=== PATIENT | male | born 1955 | race Caucasian/White ===

== ENCOUNTER → 2016-10-31 | Outpatient (CLI) | payer OTHER, BC ==
[2011-01-25 23:16] VITALS: BP 124/54
== END ==
LOC: MMPC 11:11
PROVIDERS: ATTEND Internal Medicine
DX: A41.1 Sepsis due to other specified staphylococcus (principal); I10 Essential (primary) hypertension; I26.99 Other pulmonary embolism without acute cor pulmonale; G35 Multiple sclerosis
CPT/HCPCS: 99214; G0463

== ENCOUNTER → 2016-11-07 | Outpatient (CLI) | payer OTHER, BC ==
[2011-01-25 23:16] VITALS: BP 124/54
== END ==
LOC: LAB 08:32
PROVIDERS: ATTEND Internal Medicine Infectious Disease
DX: T80.21 Infection due to central venous catheter (principal)
CPT/HCPCS: 36415; 87040

== ENCOUNTER 2016-11-28 09:33 | Emergency (ER) | payer OTHER, BC ==
[2016-11-28] MEDS ORDERED: NORMAL SALINE 10 ML SYRINGE FLUSH IVP PRN (09:41)
--- NOTE | 2016-11-28 09:46 | EKG ---
[address] [address] Measurements Intervals [place] Rate: 69 P: 68 WV: 143 QRS: -42 QRSD: 115 T: 28 QT: 383 QTc: 402 Interpretive Statements SINUS RHYTHM MARKED LEFT AXIS DEVIATION [QRS AXIS < -30] MODERATE INTRAVENTRICULAR CONDUCTION DELAY [110+ ms QRS DURATION] No previous ECG available for comparison Electronically Signed On 11-28-16 09:58:34 MST by Ishaan Dyson MD [email or web address]
--- NOTE | 2016-11-28 09:49 | PDOC ---
Dyspnea HPI - General Chief Complaint: Dyspnea Stated Complaint: "having trouble breathing" Date Seen by Provider: 11/28/16 Time Seen by Provider: 09:40 Source: POSITIVE: Patient Exam Limitations: POSITIVE: No limitations Treatment Prior to Arrival: REPORTS: None Nurse's Notes Reviewed & Considered: Yes - History of Present Illness Initial Comments: The patient is a 61-year-old male who presents to the emergency department with increased shortness of breath. The patient states that for the past 3 or 4 days he has had increased shortness of breath with activity as well as with lying flat. He also has had cough productive of greenish colored phlegm. He denies fevers or chills. He has had some mild intermittent pain across his lower chest which appears to be random. He does not currently have any chest pain. He does have chronic edema in both of his legs which is not worsened significantly recently. He also does have a history of pulmonary embolus and currently takes Xarelto. He does have a history of MS which limits his mobility. In addition he recently was hospitalized with bacteremia which turned out to be MRSA. The source of this infection was thought to be his port and this was removed in [place]. He is not currently still on any antibiotics. He denies any associated nausea or vomiting, abdominal pain or any other associated complaints. - Patient Home Medications Home Medications: Home Medications Cholecalciferol (Vitamin D3) [Vitamin D3] 1 cap PO QD #180 cap 05/05/15 Gabapentin 1 cap PO TID #270 cap 05/12/16 Modafinil 1 tab PO BID #180 05/12/16 Escitalopram Oxalate [Lexapro] 1 tab ORAL QD #90 tab 07/25/16 Rivaroxaban [Xarelto] 1 tab PO DAILY #90 tab 07/25/16 Pramipexole Di-HCl [Mirapex] 1 tab PO TID #270 tab 08/03/16 Doxycycline Hyclate 100 mg PO Q12H #20 cap 11/28/16 - Patient Allergies Allergies/Adverse Reactions: Allergies Allergy/AdvReac Type Severity Reaction Status Date / Time vancomycin Allergy Severe ITCHING Verified 11/28/16 10:04 Past Medical History - heen HEENT History: Denies History Cardiovascular History: Hypertension, DVTs Respiratory History: Denies History, Snoring Gastrointestinal History: Denies History Genitourinary History: Recurrent UTI Endocrine History: Denies History Musculoskeletal History: Arthritis, Back Pain, Muscle Weakness, Joint Pain Prosthesis or Implant: No Neurological History: Multiple Sclerosis Blood Disorders: Denies History Psychiatric History: Denies History History of Sexually Transmitted Diseases: No Cancer History: Denies History History of MDRO: No History of Other Communicable Diseases: No Alcohol Use: Occasionally Substance Use Type: None Previous Surgical History: No Anesthesia Reactions: No Malignant Hyperthermia: No Significant Family History: No pertinent family hx Past Medical History Reviewed: Reviewed - No Changes ROS - Limitations ROS Limitations: No Limitations Constitution: DENIES: Chills, Fever Cardiovascular: REPORTS: Chest Pain (Intermittent lower chest pain off and on for the past couple of days), Edema (He has chronic edema in both legs, not any worse than baseline). DENIES: Heart Racing, Heart Palpitations, Blood Pressure Problem Respiratory: REPORTS: Cough Productive (Greenish colored phlegm), Shortness Of Breath. DENIES: Hurts To Breathe, Wheezing Neurological: REPORTS: Denies Neuro Symptoms (Has MS, no changes from baseline) Gastrointestinal: DENIES: Abdominal Pain, Nausea, Vomitting, Diarrhea Musculoskeletal: REPORTS: Denies MS Symptoms Genitourinary: REPORTS: Denies Symptoms Eyes: REPORTS: Denies Symptoms ENT: REPORTS: Denies Symptoms Skin: DENIES: Rash Dyspnea Physical Exam - General Appearance General Appearance: REPORTS: Alert, Cooperative, No Acute Distress - HEENT HEENT: POSITIVE: Head Inspection Nml, Eyes Inspection Nml, Pharynx Inspect. Nml - Neck Neck: REPORTS: Normal Inspection. DENIES: JVD Present, Lymphadenopathy - Respiratory Respiratory: REPORTS: No Respiratory Distress, Breath Sounds Normal, Speaks Full Sentences, Other (Oxygen saturation on arrival was 93% on room air) - Cardiovascular Cardiovascular: REPORTS: Regular Rate and Rhythm, Heart Sounds Normal, No Murmur - Abdomen Abdomen: Soft: (All Quadrants), Denies Tenderness: (All Quadrants), No Distention: (All Quadrants) - Skin Skin: REPORTS: Intact, No Rash - Extremities Extremity: Normal ROM: (All Extremities) Additional Extremities Details: Significant edema in the lower extremities bilaterally Dyspnea Progress - Results Reviewed by me Xrays/CTs/US Reviewed by me: Yes Discussed with Radiologist: Yes Radiology Findings: Chest x-ray shows no acute infiltrate or any other acute process per radiologist. Lab Results Reviewed: Yes Lab Results:: Laboratory Results 11/28/16 Range/Units 10:00 WBC 7.64 (4.8-10.8) 10^3/uL RBC 5.11 (4.70-6.10) 10^6/uL Hgb 15.5 (14.0-18.0) g/dL Hct 45.2 (42.0-52.0) % MCV 88.5 (80-90) FL MCH 30.3 (27-31) PG MCHC 34.3 (33-37) g/dL RDW Std Deviation 47.9 (39-50) fL RDW Coeff of Kaitlyn 15.1 H (11.5-14.5) % Plt Count 193 (140-350) 10*3/uL MPV 9.7 (7.4-12.2) FL Immature Gran % (Auto) 0.5 (0-5) % Neut % (Auto) 46.5 L (50-80) % Lymph % (Auto) 41.6 (10-50) % Meade % (Auto) 7.6 (5-15) % Eos % (Auto) 3.0 (0-8) % Baso % (Auto) 0.8 (0-1) % Immature Gran # (Auto) 0.04 10*3/UL Neut # (Auto) 3.55 10*3/UL Lymph # (Auto) 3.18 10*3/uL Meade # (Auto) 0.58 (0.3-0.8) 10*3/UL Eos # (Auto) 0.23 10*3/UL Baso # (Auto) 0.06 10*3/UL WBC Morphology Comment Normal morphology (NORM) Plt Morphology Comment Normal morphology (NORM) RBC Morph Comment Normal morphology (NORM) D-Dimer 0.19 (0.00-0.59) mg/L Sodium 137 (135-145) meq/L Potassium 4.4 (3.8-5.2) meq/L Chloride 102 (98-112) meq/L Carbon Dioxide 25 (23-33) meq/L Anion Gap 10 (5-20) BUN 18 (7-22) mg/dL Creatinine 0.8 (0.70-1.50) mg/dL Estimated GFR > 60 (>60 ml/min/1.73m(2)) BUN/Creatinine Ratio 22.50 H (6-20) Glucose 97 (78-110) mg/dL Calculated Osmolality 285.0 (267-292) mOsm/kg Lactic Acid 0.8 (0.70-2.10) MMOL/L Calcium 9.1 (8.7-10.7) mg/dL Magnesium 2.2 (1.6-2.4) mg/dL Total Bilirubin 0.9 (0.3-1.2) mg/dL AST 25 (21-57) IU/L ALT 38 (21-72) IU/L Alkaline Phosphatase 60 (38-126) IU/L Troponin I < 0.012 (< 0.040) ng/mL C-Reactive Protein 0.6 (0.0-0.9) mg/dL NT-Pro-B Natriuret Pep 61.5 (0-125) PG/ML Total Protein 7.1 (6.1-8.0) g/dL Albumin 4.3 (3.5-4.8) g/dL Globulin 2.8 (2.50-4.10) g/dL Albumin/Globulin Ratio 1.50 (1.3-2.0) mg/g EKG Interpreted/Reviewed By Me:: Yes EKG Interpretation:: POSITIVE: Normal Sinus Rhythm, Normal Rate, Normal Intervals, Normal QRS, Normal ST/T - Patient's Progress MDM / ED Course: The patient's oxygen saturation on arrival was 93% on room air and he did not appear to be in any acute respiratory distress. He does have a history of MS as well as pulmonary embolus and recent bacteremia with MRSA thought to be secondary to a port which was removed. He does present with productive cough and increased shortness of breath. Blood cultures and lactate were drawn with initial blood draw. His initial EKG shows normal sinus rhythm with no acute ST segment or T-wave changes. Chest x-ray shows no obvious acute infiltrate or edema. His lab work is essentially unremarkable with a normal white count, normal lactate, normal BNP, normal d-dimer and normal troponin. At this point the patients symptoms are most consistent with bronchitis or possibly an early pneumonia. He was started on doxycycline 100 mg twice a day for 10 days. In addition he was instructed to use incentive spirometer as I think he may have some component of atelectasis making his shortness of breath worse as well. He is advised to return to the emergency room if he develops increased shortness of breath, any worsening or change in symptoms. He is advised follow-up with primary care in 7-10 days. - Consult Counseled: POSITIVE: Patient, Family, RE: Lab Results, RE: Radiology Results, RE : DX, RE: Need for F/U Patient Care Time - Estimated PCT Patient Care Time (In Minutes): 30 Vital Signs - Recent Vital Signs Vital Signs: Vital Signs (Last 8 hours) Temp Pulse Resp BP Pulse Ox 11/28/16 09:33 97.6 F 71 21 138/85 93 - VS Reviewed Vital Signs Reviewed: Yes Discharge Clinical Impression: Bronchitis Condition: Stable Prescriptions / Orders: Doxycycline Hyclate 100 mg PO Q12H #20 cap Patient Instructions Given at Discharge: Acute Bronchitis (ED) Additional Instructions: All of the blood work done here in the emergency room today looked good. There is no evidence of significant infection, heart attack, blood clots or congestive heart failure. The symptoms of productive cough and increased shortness of breath are most likely related to bronchitis or an early pneumonia. This will be treated with doxycycline 100 mg twice a day for 10 days which is an antibiotic. In addition recommend incentive spirometry. Return to the emergency room if increased shortness of breath, high fever, weakness, any worsening or change in symptoms. Recommend follow-up with primary care in 7-10 days. Follow Up With: FLORI FISHER [Primary Care Provider] -
[2016-11-28 10:09] VITALS: RESP 21; TEMP 97.6
[2016-11-28 10:17] LABS: BASOPHILS # (AUTO) 0.06 10*3/UL; BASOPHILS % (AUTO) 0.8 % (0-1); HEMATOCRIT 45.2 % (42.0-52.0); HEMOGLOBIN 15.5 g/dL (14.0-18.0); IMM GRAN % (AUTO) 0.5 % (0-5); IMM GRAN# (AUTO) 0.04 10*3/UL; LYMPHOCYTES # (AUTO) 3.18 10*3/uL; LYMPHOCYTES % (AUTO) 41.6 % (10-50); MEAN CORPUSCULAR HEMOGLOBIN 30.3 PG (27-31); MEAN CORPUSCULAR HGB CONC 34.3 g/dL (33-37); MEAN PLATELET VOLUME 9.7 FL (7.4-12.2); MONOCYTES # (AUTO) 0.58 10*3/UL (0.3-0.8); MONOCYTES % (AUTO) 7.6 % (5-15); NEUTROPHILS # (AUTO) 3.55 10*3/UL; NEUTROPHILS % (AUTO) 46.5 % (50-80); RDW COEFFICIENT OF VARIATION 15.1 % (11.5-14.5); RED BLOOD COUNT 5.11 10^6/uL (4.70-6.10); WHITE BLOOD COUNT 7.64 10^3/uL (4.8-10.8)
[2016-11-28 10:24] LABS: PLATELET MORPHOLOGY COMMENT NORMAL MORPHOLOGY (NORM)
[2016-11-28 10:26] LABS: LACTATE 0.8 MMOL/L (0.70-2.10)
[2016-11-28 10:28] LABS: ASPARTATE AMINO TRANSFERASE 25 IU/L (21-57); BILIRUBIN,TOTAL 0.9 mg/dL (0.3-1.2); BLOOD UREA NITROGEN 18 mg/dL (7-22); C-REACTIVE PROTEIN 0.6 mg/dL (0.0-0.9); CALCIUM 9.1 mg/dL (8.7-10.7); CHLORIDE 102 meq/L (98-112); CREATININE 0.8 mg/dL (0.70-1.50); EST GLOMERULAR FILTRATION > 60 (>60 ml/min/1.73m(2)); GLUCOSE 97 mg/dL (78-110); MAGNESIUM 2.2 mg/dL (1.6-2.4); POTASSIUM 4.4 meq/L (3.8-5.2); SODIUM 137 meq/L (135-145); TOTAL PROTEIN 7.1 g/dL (6.1-8.0)
[2016-11-28 10:35] LABS: NT-PRO BNP 61.5 PG/ML (0-125)
--- NOTE | 2016-11-28 12:04 | DI ---
XR CXR 1VW,11/28/2016 9:43 AM: Clinical History: Cough Previous Exam: July 03, 2015 Findings: A single view of the chest is obtained, and demonstrates clear lungs. The cardio mediastinum and bony thorax are unremarkable. Impression: No acute disease.
== END 2016-11-28 11:36 | disposition home or self-care (01) ==
LOC: ER 09:33
DX: J20.9 Acute bronchitis, unspecified (principal); G35 Multiple sclerosis; R06.02 Shortness of breath; Z86.711 Personal history of pulmonary embolism; Z79.01 Long term (current) use of anticoagulants
CPT/HCPCS: 36000; 71010; 80053; 83605; 83735; 83880; 84484; 85025; 85379; 86140; 93005; 93010; 94150; 99283

== ENCOUNTER → 2016-12-06 | Outpatient (CLI) | payer OTHER, BC ==
[2011-01-25 23:16] VITALS: BP 124/54
--- NOTE | 2016-12-06 16:17 | DI ---
CT CTA CHEST NONCORONARY W/WO,12/06/2016 3:29 PM: Clinical History: Pleuritic chest pain. Previous Exam: None at this facility. Findings: Multiple helically acquired CT images are obtained through the chest following the intravenous admini stration of 95 cc of Isovue 300, and demonstrate subsegmental atelectasis in the lung bases. The pulm onary arteries are normal without filling defect or truncation. There are a few coronary artery calcifications noted. Skeletal structures are unremarkable except for some stable gentle dextroscoliosis. The upper abdomen is unremarkable except for some fatty infiltration of the liver. Impression: No evidence of pulmonary embolism.
== END ==
LOC: CT 15:27
PROVIDERS: ATTEND Internal Medicine
DX: R07.81 Pleurodynia (principal); F17.220 Nicotine dependence, chewing tobacco, uncomplicated
CPT/HCPCS: 71275

== ENCOUNTER → 2017-04-19 | Outpatient (CLI) | payer OTHER, BC ==
[2011-01-25 23:16] VITALS: BP 124/54
[2017-04-19 07:33] LABS: BASOPHILS # (AUTO) 0.06 10*3/UL; BASOPHILS % (AUTO) 0.8 % (0-1); EOSINOPHILS # (AUTO) 0.28 10*3/UL; EOSINOPHILS % (AUTO) 3.8 % (0-8); HEMATOCRIT 46.2 % (42.0-52.0); HEMOGLOBIN 15.9 g/dL (14.0-18.0); LYMPHOCYTES # (AUTO) 2.85 10*3/uL; MEAN CORPUSCULAR HEMOGLOBIN 30.7 PG (27-31); MEAN CORPUSCULAR HGB CONC 34.4 g/dL (33-37); MEAN CORPUSCULAR VOLUME 89.2 FL (80-90); MEAN PLATELET VOLUME 9.6 FL (7.4-12.2); MONOCYTES # (AUTO) 0.63 10*3/UL (0.3-0.8); MONOCYTES % (AUTO) 8.6 % (5-15); NEUTROPHILS # (AUTO) 3.47 10*3/UL; NEUTROPHILS % (AUTO) 47.4 % (50-80); RED BLOOD COUNT 5.18 10^6/uL (4.70-6.10)
[2017-04-19 07:36] LABS: PLATELET MORPHOLOGY COMMENT NORMAL MORPHOLOGY (NORM); RBC MORPHOLOGY COMMENT NORMAL MORPHOLOGY (NORM); WBC MORPHOLOGY COMMENT NORMAL MORPHOLOGY (NORM)
[2017-04-19 07:43] LABS: BLOOD UREA NITROGEN 13 mg/dL (7-22); BUN/CREATININE RATIO 14.44 (6-20); CALCIUM 8.7 mg/dL (8.7-10.7); CHOL/HDL RATIO 3.72 RATIO (0-4.0); EST GLOMERULAR FILTRATION > 60 (>60 ml/min/1.73m(2)); HDL CHOLESTEROL 43 mg/dL (40-150); SERUM ALBUMIN 4.1 g/dL (3.5-4.8); SERUM CHOLESTEROL 160 mg/dL (120-200)
== END ==
LOC: LAB 07:11
PROVIDERS: ATTEND Internal Medicine
DX: I10 Essential (primary) hypertension (principal); G35 Multiple sclerosis; Z12.5 Encounter for screening for malignant neoplasm of prostate
CPT/HCPCS: 36415; 80053; 80061; 84443; 85025; G0103

== ENCOUNTER → 2017-04-24 | Outpatient (CLI) | payer OTHER, BC ==
[2011-01-25 23:16] VITALS: BP 124/54
== END ==
LOC: MMPC 11:11
PROVIDERS: ATTEND Internal Medicine
DX: G35 Multiple sclerosis (principal); I10 Essential (primary) hypertension; Z86.711 Personal history of pulmonary embolism
CPT/HCPCS: 99214; G0463